=== PATIENT | male | born 1950 | race Hispanic/Latino ===

== ENCOUNTER 2018-09-22 19:52 | Emergency (ER) | payer OTHER ==
[2018-09-22 20:41] LABS: APPEARANCE,URINE Clear (CLEAR); BILIRUBIN,URINE Negative (NEGATIVE); COLOR,URINE Yellow (YELLOW); GLUCOSE, URINE (UA) Negative (NEGATIVE); KETONES,URINE Negative (NEGATIVE); LEUKOCYTE ESTERASE ,URINE Negative (NEGATIVE); NITRATE,URINE Negative (NEGATIVE); OCCULT BLOOD,URINE Trace (NEGATIVE); PROTEIN,URINE 300 (NEGATIVE); UROBILINOGEN,URINE 0.2 mg/dL (0.2-1.0)
[2018-09-22 20:49] LABS: BACTERIA,URINE Rare /HPF (None Seen)
[2018-09-22 20:50] LABS: SPERM,URINE Few /HPF (None Seen); SQUAMOUS EPITHELIAL CELL,UR Few /HPF (0-2)
[2018-09-22 20:52] LABS: BASOPHILS % (AUTO) 0.6 % (0.0-5.0); EOSINOPHILS % (AUTO) 2.5 % (0.0-8.0); HEMATOCRIT 39.8 % (42-54); LYMPHOCYTES % (AUTO) 20.9 % (21.0-51.0); MEAN CORPUSCULAR HEMOGLOBIN 30.6 pg (27.0-33.0); MEAN CORPUSCULAR HGB CONC 33.1 g/dL (32.0-36.0); MEAN CORPUSCULAR VOLUME 92.4 fL (79-99); MONOCYTES % (AUTO) 8.8 % (3.0-13.0); NEUTROPHILS % (AUTO) 67.2 % (40.0-77.0); NUCLEATED RED BLOOD CELLS 0.1 % (0.0-0.19); PLATELET COUNT (AUTO) 384 K/uL (130-400); RED BLOOD CELL COUNT(AUTO) 4.31 MIL/uL (4.50-6.20); RED CELL DISTRIBUTION WIDTH 13.8 % (11.0-15.5); WHITE BLOOD COUNT (AUTO) 8.1 K/uL (4.8-10.8)
[2018-09-22] MEDS ORDERED: CLONIDINE HCL 0.1 MG TABLET ONE (21:00)
[2018-09-22 21:09] LABS: CREATININE 1.5 mg/dL (0.5-1.5); POTASSIUM 4.2 mmol/L (3.5-5.1)
[2018-09-22 21:13] LABS: BILIRUBIN,TOTAL 0.2 mg/dL (0.2-1.0)
== END 2018-09-22 22:11 | disposition home or self-care (01) ==
LOC: EDH 19:52
DX: I10 Essential (primary) hypertension (principal); E11.9 Type 2 diabetes mellitus without complications; E78.5 Hyperlipidemia, unspecified; F32.9 Major depressive disorder, single episode, unspecified; F41.9 Anxiety disorder, unspecified; Z88.0 Allergy status to penicillin; Z98.890 Other specified postprocedural states; Z87.891 Personal history of nicotine dependence
CPT/HCPCS: 36415; 80053; 81001; 84484; 85025; 93005

== ENCOUNTER → 2019-02-19 | Outpatient (CLI) | payer OTHER | END | disposition home or self-care (01) | LOC: SHCH 15:01 | PROVIDERS: ATTEND Internal Medicine Cardiovascular Disease | DX: I35.8 Other nonrheumatic aortic valve disorders (principal); G45.9 Transient cerebral ischemic attack, unspecified; I71.4 Abdominal aortic aneurysm, without rupture | CPT/HCPCS: 93306 ==

== ENCOUNTER → 2019-02-23 | Outpatient (CLI) | payer OTHER | END | disposition home or self-care (01) | LOC: SHCH 07:41 | PROVIDERS: ATTEND Internal Medicine Cardiovascular Disease | DX: I71.4 Abdominal aortic aneurysm, without rupture (principal) | CPT/HCPCS: 93978 ==

== ENCOUNTER → 2019-03-12 | Outpatient (CLI) | payer OTHER ==
[~2019-03-12] VITALS: Ht 172.7 cm; Wt 88.9 kg
[~2019-03-12] MED LIST: REGADENOSON 0.4 MG/5 ML PF SYG IVP SCH
== END | disposition home or self-care (01) ==
LOC: SHCH 08:29
PROVIDERS: ATTEND Internal Medicine Cardiovascular Disease
DX: G45.9 Transient cerebral ischemic attack, unspecified (principal); I10 Essential (primary) hypertension; I71.4 Abdominal aortic aneurysm, without rupture
CPT/HCPCS: 78452; 93017; 96374; A9500 ×2; J2785

== ENCOUNTER 2020-09-11 11:14 | Emergency (ER) | payer OTHER, MEDICARE ==
[~2020-09-11 11:14] MED LIST changes: +AMLO5TAB4 PO; +ATOR10 PO; +BENA10TA88 PO; +GABA-531 PO; +LORA10TA7 PO; +METF-444 PO; +MINO2.5 PO; -REGADENOSON 0.4 MG/5 ML PF SYG IVP SCH; +TAMS-1 PO; +VENL75CA55 PO
== END 2020-09-11 12:53 | disposition home or self-care (01) ==
LOC: EDH 11:14
DX: U07.1 COVID-19 (principal); F41.9 Anxiety disorder, unspecified; F32.9 Major depressive disorder, single episode, unspecified; E11.9 Type 2 diabetes mellitus without complications; E78.5 Hyperlipidemia, unspecified; I10 Essential (primary) hypertension; Z87.891 Personal history of nicotine dependence; Z88.0 Allergy status to penicillin
CPT/HCPCS: 71045

== ENCOUNTER 2020-09-27 12:23 | Emergency (ER) | payer OTHER, MEDICARE ==
[2020-09-27 12:59] LABS: CREATININE 2.5 mg/dL (0.5-1.5); POTASSIUM 5.9 mmol/L (3.5-5.1)
[2020-09-27] MEDS ORDERED: SODIUM ZIRCONIUM CYCLOSILICATE 5 GM POWD.PACK PO NR ×2 (14:15→17:15)
[2020-09-27] MEDS ORDERED: SODIUM POLYSTYRENE SULFONATE 15 GM/60 ML ML ONE (20:32)
== END 2020-09-28 01:44 | disposition home or self-care (01) ==
LOC: EDH 12:23
DX: E87.5 Hyperkalemia (principal); I10 Essential (primary) hypertension; E78.5 Hyperlipidemia, unspecified; F41.9 Anxiety disorder, unspecified; F32.9 Major depressive disorder, single episode, unspecified; Z88.0 Allergy status to penicillin; Z98.890 Other specified postprocedural states
CPT/HCPCS: 36415; 80048; 84132; 93005

== ENCOUNTER 2020-10-18 16:40 | Emergency (ER) | payer OTHER, MEDICARE ==
[2020-10-18 17:06] LABS: BASOPHILS % (AUTO) 0.6 % (0.0-5.0); HEMATOCRIT 34.4 % (42-54); LYMPHOCYTES % (AUTO) 18.1 % (21.0-51.0); MEAN CORPUSCULAR HEMOGLOBIN 29.2 pg (27.0-33.0); MEAN CORPUSCULAR HGB CONC 31.4 g/dL (32.0-36.0); MONOCYTES % (AUTO) 8.8 % (3.0-13.0); NEUTROPHILS % (AUTO) 70.1 % (40.0-77.0); PLATELET COUNT (AUTO) 226 K/uL (130-400); RED CELL DISTRIBUTION WIDTH 14.5 % (11.0-15.5); WHITE BLOOD COUNT (AUTO) 8.5 K/uL (4.8-10.8)
[2020-10-18 17:19] LABS: CREATININE 2.2 mg/dL (0.5-1.5); POTASSIUM 4.4 mmol/L (3.5-5.1)
[2020-10-18 17:20] LABS: INR 1.07 (0.85-1.15); PROTHROMBIN TIME 11.4 SEC (9.6-11.6)
[2020-10-18 17:21] LABS: PARTIAL THROMBOPLASTIN TIME 25.4 SEC (26.3-35.5)
[2020-10-18 17:23] LABS: ALBUMIN 3.3 g/dL (3.5-5.0); BILIRUBIN,TOTAL 0.4 mg/dL (0.2-1.0); MAGNESIUM 1.5 mg/dL (1.80-2.40); TOTAL PROTEIN, SERUM 7.7 g/dL (6.0-8.3)
[2020-10-18 17:25] LABS: B-TYPE NATRIURETIC PEPTIDE 196 pg/mL (0-100)
[2020-10-18] MEDS ORDERED: HYDRALAZINE HCL 25 MG TABLET ONE (17:51)
== END 2020-10-18 20:55 | disposition home or self-care (01) ==
LOC: EDH 16:40
DX: F43.0 Acute stress reaction (principal); I10 Essential (primary) hypertension; F41.9 Anxiety disorder, unspecified; F32.9 Major depressive disorder, single episode, unspecified; E11.9 Type 2 diabetes mellitus without complications; E78.5 Hyperlipidemia, unspecified; Z88.0 Allergy status to penicillin
CPT/HCPCS: 36415; 71045; 80053; 83735; 83880; 84484; 85025; 85610; 85730; 93005

== ENCOUNTER → 2020-11-28 | Outpatient (CLI) | payer OTHER | END | disposition home or self-care (01) | LOC: SHCH 08:57 | PROVIDERS: ATTEND Internal Medicine Cardiovascular Disease | DX: E78.5 Hyperlipidemia, unspecified (principal); R94.31 Abnormal electrocardiogram [ECG] [EKG] | CPT/HCPCS: 93306; 93356 ==

== ENCOUNTER → 2020-12-02 | Outpatient (CLI) | payer OTHER ==
[~2020-12-02] VITALS: Ht 172.7 cm; Wt 88.5 kg
[~2020-12-02] MED LIST changes: +REGADENOSON 0.4 MG/5 ML PF SYG IVP SCH
== END | disposition home or self-care (01) ==
LOC: SHCH 08:02
PROVIDERS: ATTEND Internal Medicine Cardiovascular Disease
DX: E78.5 Hyperlipidemia, unspecified (principal); I25.10 Atherosclerotic heart disease of native coronary artery without angina pectoris
CPT/HCPCS: 78452; 93017; 96374; A9500 ×2; J2785

== ENCOUNTER 2020-12-07 20:02 | Emergency (ER) | payer OTHER ==
[~2020-12-07 20:02] MED LIST changes: -REGADENOSON 0.4 MG/5 ML PF SYG IVP SCH
[2020-12-07 20:34] LABS: BASOPHILS % (AUTO) 0.5 % (0.0-5.0); EOSINOPHILS % (AUTO) 6.1 % (0.0-8.0); HEMATOCRIT 34.6 % (42-54); LYMPHOCYTES % (AUTO) 21.4 % (21.0-51.0); MEAN CORPUSCULAR HEMOGLOBIN 28.9 pg (27.0-33.0); MEAN CORPUSCULAR HGB CONC 31.8 g/dL (32.0-36.0); MEAN CORPUSCULAR VOLUME 91.1 fL (79-99); MONOCYTES % (AUTO) 8.5 % (3.0-13.0); PLATELET COUNT (AUTO) 228 K/uL (130-400); RED CELL DISTRIBUTION WIDTH 14.1 % (11.0-15.5); WHITE BLOOD COUNT (AUTO) 7.7 K/uL (4.8-10.8)
[2020-12-07 20:44] LABS: CREATININE 2.7 mg/dL (0.5-1.5); POTASSIUM 4.4 mmol/L (3.5-5.1)
[2020-12-07 20:47] LABS: APPEARANCE,URINE Clear (CLEAR); BILIRUBIN,URINE Negative (NEGATIVE); COLOR,URINE Yellow (YELLOW); GLUCOSE, URINE (UA) Negative (NEGATIVE); KETONES,URINE Negative (NEGATIVE); LEUKOCYTE ESTERASE ,URINE Negative (NEGATIVE); NITRATE,URINE Negative (NEGATIVE); OCCULT BLOOD,URINE Small (NEGATIVE); PH,URINE 6.5 (5.0-8.0); PROTEIN,URINE >=1000 mg/dL (NEGATIVE); UROBILINOGEN,URINE 0.2 mg/dL (0.2-1.0)
[2020-12-07 20:58] LABS: ALBUMIN 3.1 g/dL (3.5-5.0); BILIRUBIN,TOTAL 0.4 mg/dL (0.2-1.0); TOTAL PROTEIN, SERUM 7.4 g/dL (6.0-8.3)
[2020-12-07 20:59] LABS: BACTERIA,URINE Rare /HPF (None Seen); MUCUS,URINE Few LPF (None Seen); SQUAMOUS EPITHELIAL CELL,UR Few /HPF (0-2)
[2020-12-07 21:06] LABS: INR 1.05 (0.85-1.15); PROTHROMBIN TIME 11.4 SEC (9.6-11.6)
[2020-12-07 21:07] LABS: PARTIAL THROMBOPLASTIN TIME 25.1 SEC (26.3-35.5)
[2020-12-07] MEDS ORDERED: HYDRALAZINE HCL 20 MG/ML VIAL ONE (21:26)
[2020-12-07] MEDS ORDERED: SODIUM CHLORIDE 0.9% 1000ML 1,000 ML IV ONE (21:31)
== END 2020-12-07 22:51 | disposition home or self-care (01) ==
LOC: EDH 20:02
DX: I12.9 Hypertensive chronic kidney disease with stage 1 through stage 4 chronic kidney disease, or unspecified chronic kidney disease (principal); E11.22 Type 2 diabetes mellitus with diabetic chronic kidney disease; N18.9 Chronic kidney disease, unspecified; J90 Pleural effusion, not elsewhere classified; Z88.0 Allergy status to penicillin; E78.5 Hyperlipidemia, unspecified; Z98.890 Other specified postprocedural states
CPT/HCPCS: 36415; 71045; 80053; 81001; 82550; 84484; 85025; 85610; 85730; 93005; 96361; 96374; 99285; J0360; J7030

== ENCOUNTER → 2023-07-25 | Outpatient (CLI) | payer OTHER ==
[~2023-07-25] MED LIST changes: +GADOTERATE MEGLUMINE 10 MMOL/20 ML VIAL IV ONE; +GADOTERATE MEGLUMINE 5 MMOL/10 ML VIAL IV ONE
== END | disposition home or self-care (01) ==
LOC: RAH 08:19
PROVIDERS: ATTEND Internal Medicine Gastroenterology
DX: N28.1 Cyst of kidney, acquired (principal); N26.1 Atrophy of kidney (terminal); R10.84 Generalized abdominal pain
CPT/HCPCS: 74181; A9575; S8037

== ENCOUNTER 2024-10-20 09:06 | Emergency (ER) | payer OTHER, MEDICARE ==
[~2024-10-20] VITALS: Ht 172.7 cm; Wt 88.9 kg
[~2024-10-20 09:06] MED LIST changes: -GADOTERATE MEGLUMINE 10 MMOL/20 ML VIAL IV ONE; -GADOTERATE MEGLUMINE 5 MMOL/10 ML VIAL IV ONE
--- NOTE | 2024-10-20 09:36 | ERN ---
ED Note History of Present Illness Stated Complaint: ABD PAIN AND CONSTIPATION X 3 DAYS Chief Complaint: Abdominal Pain Time Seen by MD: 09:13 Dictation: This is a 74-year-old male. He comes to the ED. He has of last few days he has not been able he said he has been having lots and lots of fighting passing gas. No chest pain or shortness of breath isn't on dialysis no fevers but they said they are subjective sweats there two days ago. No cough congestion runny nose Allergies: Coded Allergies: penicillin G (Unverified Allergy, Unknown, 03/05/19) Home Meds Active Scripts Minoxidil (Loniten) 2.5 Mg Tab, 7.5 MG PO BID for 30 Days, #60 TAB 0 Refills Prov:RUPESH ATKINS 11/22/19 Benazepril HCl (Lotensin) 10 Mg Tablet, 40 MG PO DAILY for 30 Days, #30 TAB 0 Refills Prov:RUPESH ATKINS 11/22/19 Amlodipine Besylate (Norvasc 5Mg Tab) 5 Mg Tablet, 5 MG PO BID for 30 Days, #60 TAB 0 Refills Prov:RUPESH ATKINS [facility] 11/22/19 Reported Medications Loratadine (Loratadine) 10 Mg Tablet, 10 MG PO HS, TAB 11/19/19 Gabapentin (Gabapentin) 300 Mg Capsule, 300 MG PO HS, CAP 11/19/19 Tamsulosin HCl (Flomax) 0.4 Mg Cap.er.24h, 0.4 MG PO HS, CAPSULE. 11/19/19 Venlafaxine HCl (Effexor Xr) 75 Mg Cap.er.24h, 75 MG PO HS, CAPSULE. 11/19/19 Atorvastatin Calcium (LIPITOR) 20 Mg Tab, 20 MG PO HS, TAB 11/19/19 Metformin HCl (Metformin HCl) 500 Mg Tablet, 500 MG PO BID, TAB 11/19/19 Past Medical History Past Medical History: Angina, CAD, Diabetes-Type II, High Cholesterol, Hypertension, Renal Disese Surgical History: CABG, Other Surgical History Other: HERNIA Review of System Dictation Constitutional: Negative for fever,chills, and weight loss Eyes: Negative for injury, pain,redness, and discharge ENT: Negative for injury,pain or swelling Cardiovascular: Negative for chest pain, palpitations, and edema Respiratory: Negative for shortness of breath, cough, and wheezing, Abdomen/GI: Abdominal pain constipation Back: Negative for injury and pain : Negative for injury, bleeding and discharge MS/Extremity: Negative for injury and deformity Skin: Negative for rash, and discoloration Neuro: Negative for headache, weakness, numbness, tingling, and seizure Psych: Negative for suicide ideation, homicidal ideation, and hallucinations Initial Vital Sign VS Vital Signs Date Time Temp Pulse Resp B/P (MAP) Pulse Ox O2 Delivery O2 Flow Rate FiO2 10/20/24 09:07 97.9 68 20 133/62 99 Room Air 0 10/20/24 10:01 21 Physical Exam Dictation General: awake, alert, NAD Head/Face: Normocephalic, atraumatic Eyes: PERRL, EOMI, vision at baseline ENT: oral cavity clear, TMs clear, no signs of infection Neck: Trachea midline, supple, no nuchal rigidity Cardiovascular: RRR, normal S1/S2, No MRGs, no JVD Respiratory: CTAB, no respiratory distress, No rales or wheezes Abdomen: Soft, non-tender, non-distended, normal bowel sounds, no guarding or rebound. Skin: Warm, dry, normal turgor, no rash MS/Extremity: Pulses equal, no cyanosis, neurovascular intact, FROM Neuro: COAx4, GCS 15, strength 5/5, CN 2-12 intact, normal cerebellar exam, normal gait, Psych: Normal behavior, mood, and affect normal Results (Laboratory/Radiology) Laboratory/Radiology Laboratory Tests Test 10/20/24 09:42 White Blood Count 8.3 K/uL (4.8-10.8) Red Blood Count 3.51 MIL/uL (4.50-6.20) L Hemoglobin 11.6 g/dL (14.0-18.0) L Hematocrit 36.7 % (42-54) L Mean Corpuscular Volume 104.6 fL (79-99) H Mean Corpuscular Hemoglobin 33.0 pg (27.0-33.0) Mean Corpuscular Hemoglobin Concent 31.6 g/dL (32.0-36.0) L Red Cell Distribution Width 15.1 % (11.0-15.5) Platelet Count 255 K/uL (130-400) Mean Platelet Volume 8.9 fL (7.5-10.5) Immature Granulocyte % (Auto) 0.7 % (0-1) Neutrophils (%) (Auto) 75.5 % (40.0-77.0) Lymphocytes (%) (Auto) 12.4 % (21.0-51.0) L Monocytes (%) (Auto) 11.0 % (3.0-13.0) Eosinophils (%) (Auto) 0.2 % (0.0-8.0) Basophils (%) (Auto) 0.2 % (0.0-5.0) Neutrophils # (Auto) 6.3 K/uL (1.8-7.7) Lymphocytes # (Auto) 1.0 K/uL (1.0-4.8) Monocytes # (Auto) 0.9 K/uL (0.1-1.0) Eosinophils # (Auto) 0.02 K/uL (0.00-0.70) Basophils # (Auto) 0.02 K/uL (0.00-0.20) Absolute Immature Granulocyte (auto 0.06 K/uL (0-1) Nucleated Red Blood Cells 0.0 % (0.0-0.19) Sodium Level 139 mmol/L (136-145) Potassium Level 5.0 mmol/L (3.5-5.1) Chloride Level 101 mmol/L (101-111) Carbon Dioxide Level 31 mmol/L (21-32) Blood Urea Nitrogen 29 mg/dL (7-18) H Creatinine 6.5 mg/dL (0.5-1.3) H Glomerular Filtration Rate Calc 8 mL/min (>90) Random Glucose 155 mg/dL (70-105) H Total Calcium 8.8 mg/dL (8.5-10.1) Total Bilirubin 0.8 mg/dL (0.2-1.0) Aspartate Amino Transf (AST/SGOT) 10 U/L (10-37) Alanine Aminotransferase (ALT/SGPT) 14 U/L (12-78) Alkaline Phosphatase 113 U/L (50-136) Troponin I High Sensitivity 28 ng/L (4-75) Total Protein 7.3 g/dL (6.0-8.3) Albumin 3.7 g/dL (3.5-5.0) ED Course ED Course Orders Procedure Category Date Status Time Cbc With Differential LAB 10/20/24 Complete 09:19 Comprehensive LAB 10/20/24 Complete Metabolic Panel 09:19 Troponin I High LAB 10/20/24 Complete Sensitivity 09:19 12 Lead Ekg Tracing- EKG 10/20/24 Logged Technical 09:19 Chest 1vw RAD 10/20/24 Resulted 09:19 Ct Abdomen/Pelvis CT 10/20/24 Resulted W/Wo Contras 09:19 Morphine 4mg Syg PHA 10/20/24 Complete (Morphine 4mg Syg) 09:30 Ondansetron 4mg Inj PHA 10/20/24 Complete (Zofran 4mg Inj) 09:30 Lactulose 20 Gm/30 Ml PHA 10/20/24 Complete Udcup (Constulose 09:30 Fleet Order CPOE 10/20/24 Transmitted 10:21 Iohexol (Omnipaque) PHA 10/20/24 Complete 11:39 Current Medications Medications (Trade) Dose Ordered Sig/Meaghan Route PRN Reason Start Time Stop Time Status Last Admin Dose Admin Iohexol (Omnipaque) 75 ml STK-MED ONCE IV 10/20/24 11:39 10/20/24 11:39 DC Lactulose (Constulose 20gm/ 30ml Udcup) 20 gm ONCE ONCE PO 10/20/24 09:30 10/20/24 09:35 DC 10/20/24 09:49 Morphine Sulfate (morPHINE 4MG SYG) 4 mg ONCE ONCE IVP 10/20/24 09:30 10/20/24 09:35 DC 10/20/24 10:00 Ondansetron HCl (zoFRAN 4MG INJ) 4 mg ONCE ONCE IVP 10/20/24 09:30 10/20/24 09:35 DC 10/20/24 09:49 Vital Signs Date Time Temp Pulse Resp B/P (MAP) Pulse Ox O2 Delivery O2 Flow Rate FiO2 10/20/24 10:01 97.7 68 16 156/76 100 Room Air* 0 21 10/20/24 09:07 97.9 68 20 133/62 99 Room Air 0 Medical Decision Making MDM MDM: Differential diagnosis: Considered SBO. But patient has been passing gas daily. He has a feels better. I will go ahead go home. With I told him MiraLax twice a day. Colace twice a day and also enemas every day Rationale: Tests considered and ordered secondary to shared decision making include: Previous outside records reviewed: Old ER visits. Risk of complication and/or morbidity or mortality of patient management: None Medications-Per medication reconciliation Need for hospitalization: Patient does not meet criteria for hospitalization. Need for emergency major/minor surgery: No There are no social concerns with this patient. Prescription drug management Prescriptions will include symptomatic care Patient's prior external medical records from other ER visits were reviewed by me as indicated. Prior testing and results from previous visits were reviewed. Prior tests were taken into account with medical decision making and resource utilization, independent historian/historians were used to obtain complete medical history. I independently interpreted the test that were performed, results were reviewed by me and considered findings on radiology if ordered. Medical management and examination interpretation discussions were had by me with other qualified healthcare professionals as indicated for the patient's care. DX & DISP Disposition: Discharge Departure Condition: Stable Referrals: HARJEET DESOUZA MD (PCP) CHASE ESPINO MD Oct 20, 2024 09:36
[2024-10-20] MEDS: LACTULOSE 20 GM/30 ML UDCUP PO ONE (09:49)
[2024-10-20] MEDS: ondanSETRON 4MG INJ IVP ONE (09:49)
[2024-10-20] MEDS: morPHINE 4 MG SYG IVP ONE (10:00)
[2024-10-20 10:09] LABS: BASOPHILS # (AUTO) 0.02 K/uL (0.00-0.20); BASOPHILS % (AUTO) 0.2 % (0.0-5.0); EOSINOPHILS # (AUTO) 0.02 K/uL (0.00-0.70); EOSINOPHILS % (AUTO) 0.2 % (0.0-8.0); HEMATOCRIT 36.7 % (42-54); IMMATURE GRANULOCYTE ABSOLUTE 0.06 K/uL (0-1); LYMPHOCYTES % (AUTO) 12.4 % (21.0-51.0); MEAN CORPUSCULAR HGB CONC 31.6 g/dL (32.0-36.0); MEAN CORPUSCULAR VOLUME 104.6 fL (79-99); MONOCYTES # (AUTO) 0.9 K/uL (0.1-1.0); NEUTROPHILS # (AUTO) 6.3 K/uL (1.8-7.7); NEUTROPHILS % (AUTO) 75.5 % (40.0-77.0); PLATELET COUNT (AUTO) 255 K/uL (130-400); RED BLOOD CELL COUNT(AUTO) 3.51 MIL/uL (4.50-6.20); RED CELL DISTRIBUTION WIDTH 15.1 % (11.0-15.5); WHITE BLOOD COUNT (AUTO) 8.3 K/uL (4.8-10.8)
--- NOTE | 2024-10-20 10:19 | HMCIMG ---
CHEST 1VW REASON: chest congestion COMPARISON: 12/07/2020 FINDINGS: There is mild atelectasis in the left lung base, scarring could cause this appearance as well. Lungs are otherwise clear. Heart size is normal. There is no vascular congestion. There is been a previous median sternotomy. IMPRESSION: 1. Atelectasis or scarring left lung base, otherwise negative exam.
[2024-10-20 10:22] LABS: CREATININE 6.5 mg/dL (0.5-1.3)
[2024-10-20 10:32] LABS: ALBUMIN 3.7 g/dL (3.5-5.0); BILIRUBIN,TOTAL 0.8 mg/dL (0.2-1.0); TOTAL PROTEIN, SERUM 7.3 g/dL (6.0-8.3)
[2024-10-20] MEDS ORDERED: IOHEXOL-350 75 ML VIAL IV ONE (11:39)
--- NOTE | 2024-10-20 12:08 | HMCIMG ---
CT ABDOMEN/PELVIS W/WO CONTRAS REASON: abdominal pain, constipation Comparison: 04/21/2018 TECHNIQUE: Images are obtained from lung bases through the symphysis pubis following IV contrast, 75 cc Omnipaque 350. FINDINGS: Lung bases are clear. There are no focal liver lesions. There is moderate to marked bilateral renal cortical thinning consistent with a history of renal failure. 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 Spleen and pancreas appear unremarkable. The gallbladder appears normal as well. Bowel loops appear unremarkable. This includes normal appearance of the appendix There is no evidence of free fluid or intraperitoneal air. There are no focal fluid collections. Aorta and retroperitoneum appear normal as do pelvic soft tissue structures. The anterior abdominal wall is intact. Osseous structures appear unremarkable. IMPRESSION: 1. Renal cortical thinning consistent with chronic renal disease. 2. Stable left renal artery aneurysm. 3. No acute finding in the abdomen or pelvis. CT was performed with one or more following dose reduction techniques: automated exposure control, adjustment of the mA and kv according to patient's size, or use of a iterative reconstruction technique.
[2024-10-20 13:04] VITALS: BP 120/81; PULSE 75; RESP 16; TEMP 98.3; O2SAT 99
--- NOTE | 2024-10-20 20:58 | EKG ---
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
== END 2024-10-20 13:10 | disposition home or self-care (01) ==
LOC: EDH 09:06
DX: K59.00 Constipation, unspecified (principal); E11.9 Type 2 diabetes mellitus without complications; E78.00 Pure hypercholesterolemia, unspecified; I11.9 Hypertensive heart disease without heart failure; I25.10 Atherosclerotic heart disease of native coronary artery without angina pectoris; Z79.84 Long term (current) use of oral hypoglycemic drugs; Z79.899 Other long term (current) drug therapy; Z88.0 Allergy status to penicillin; Z95.1 Presence of aortocoronary bypass graft; Z98.890 Other specified postprocedural states
CPT/HCPCS: 99285; 74178; 96374; 71045; 96375; 84484; 80053; 85025; 36415; 93005; J2405; J2270; Q9967

== ENCOUNTER → 2024-10-24 | Outpatient (CLI) | payer OTHER ==
--- NOTE | 2024-10-26 09:03 | HMCSR ---
APPROVED REPORT Laterality: Bilateral Indications g45.9 Doppler Spectral Velocity Analysis PSV / EDVPSV / EDV ECA (R) 124 / cm/sECA (L) 103 / cm/s dICA (R) 70 / 19 cm/sdICA (L) 57 / 13 cm/s [place] (R) 58 / 16 cm/smICA (L) 56 / 18 cm/s pICA (R) 65 / 12 cm/spICA (L) 87 / 16 cm/s dCCA (R) 71 / 9 cm/sdCCA (L) 101 / 11 cm/s mCCA (R) 99 / 11 cm/smCCA (L) 127 / 14 cm/s pCCA (R) 86 / 11 cm/spCCA (L) 103 / 16 cm/s Vert (R) 36 / cm/sVert (L) Subl. (R) 149 / cm/sSubl. (L) 292 / cm/s ICA/CCA 0.71ICA/CCA 0.69 Technologist Impression Minimal to mild plaque noted in the bilateral carotids, without hemodynamic significance. Right vertebral artery appears antegrade. Left vertebral artery appears pre-occluded. AVF noted on left upper extremity. Conclusion As above. Conclusion As above.
== END | disposition home or self-care (01) ==
LOC: SHCH 14:20
PROVIDERS: ATTEND Internal Medicine Cardiovascular Disease
DX: I65.23 Occlusion and stenosis of bilateral carotid arteries (principal); I77.0 Arteriovenous fistula, acquired
CPT/HCPCS: 93880

== ENCOUNTER → 2024-10-29 | Outpatient (CLI) | payer OTHER ==
--- NOTE | 2024-10-29 10:31 | HMCIMG ---
NM GASTRIC EMPTYING STUDY REASON: ABDOMINAL DISTENSION. COMPARISON: None TECHNIQUE: Nuclear gastric emptying study was performed with 50 mCi of technetium sulfa colloid with scrambled eggs through oral route. FINDINGS: T half of gastric emptying is 44 minutes. IMPRESSION: Normal gastric emptying with T half of 44 minutes.
== END | disposition home or self-care (01) ==
LOC: RAH 06:51
PROVIDERS: ATTEND Internal Medicine Gastroenterology
DX: R68.81 Early satiety (principal); R14.0 Abdominal distension (gaseous); R11.0 Nausea
CPT/HCPCS: 78264; A9541

== ENCOUNTER 2024-10-31 16:55 | Emergency (ER) | payer OTHER ==
[~2024-10-31] VITALS: Ht 172.7 cm; Wt 84.4 kg
[2024-10-31 17:44] LABS: BASOPHILS # (AUTO) 0.04 K/uL (0.00-0.20); BASOPHILS % (AUTO) 0.5 % (0.0-5.0); EOSINOPHILS # (AUTO) 0.14 K/uL (0.00-0.70); EOSINOPHILS % (AUTO) 1.6 % (0.0-8.0); HEMATOCRIT 36.6 % (42-54); IMMATURE GRANULOCYTE ABSOLUTE 0.06 K/uL (0-1); LYMPHOCYTES # (AUTO) 1.2 K/uL (1.0-4.8); LYMPHOCYTES % (AUTO) 13.3 % (21.0-51.0); MEAN CORPUSCULAR HEMOGLOBIN 32.3 pg (27.0-33.0); MEAN CORPUSCULAR HGB CONC 30.9 g/dL (32.0-36.0); MEAN CORPUSCULAR VOLUME 104.6 fL (79-99); MONOCYTES # (AUTO) 0.9 K/uL (0.1-1.0); MONOCYTES % (AUTO) 9.8 % (3.0-13.0); NEUTROPHILS # (AUTO) 6.6 K/uL (1.8-7.7); NEUTROPHILS % (AUTO) 74.1 % (40.0-77.0); PLATELET COUNT (AUTO) 225 K/uL (130-400); RED CELL DISTRIBUTION WIDTH 15.4 % (11.0-15.5); WHITE BLOOD COUNT (AUTO) 8.9 K/uL (4.8-10.8)
--- NOTE | 2024-10-31 17:48 | EKG ---
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
[2024-10-31 17:56] LABS: CREATININE 6.5 mg/dL (0.5-1.3); POTASSIUM 4.7 mmol/L (3.5-5.1)
--- NOTE | 2024-10-31 17:58 | HMCIMG ---
INDICATION: cough TECHNIQUE: CHEST 1VW COMPARISON: 10/20/2024 FINDINGS/IMPRESSION: Prominent bilateral interstitial markings which may represent bronchitis or vascular congestion in the proper clinical setting. Borderline cardiomegaly with CABG changes. Mild degenerative changes of the spine. The visualized upper abdomen appears unremarkable.
--- NOTE | 2024-10-31 20:16 | ERN ---
General Chief Complaint: Hypertension Stated Complaint: CHILLS,HIGH BLOOD PRESSURE Time Seen by MD: 17:23 Time Seen by Midlevel: 17:23 Source: patient History of Present Illness Initial Comments Patient is a 74-year-old male with a past medical history of hypertension and end-stage renal disease on hemodialysis presenting to the emergency department with persistent cold sweats. The patient reports having a coronary artery bypass in 2022 and since then has been having night sweats. The night sweats have been progressively worsening. The patient now reports his night sweats occurred during the daytime. He was mentioned this to his primary care doctor but has not been worked up for it. Today he was no complaints but wanted to make sure he does not have an infection. He specifically denies any chest pain, shortness of breath, cough, nausea, vomiting, diarrhea, or any other symptoms at this time. Allergies: Coded Allergies: penicillin G (Unverified Allergy, Unknown, 03/05/19) Home Meds Active Scripts Minoxidil (Loniten) 2.5 Mg Tab, 7.5 MG PO BID for 30 Days, #60 TAB 0 Refills Prov:RUPESH ATKINS [facility] 11/22/19 Benazepril HCl (Lotensin) 10 Mg Tablet, 40 MG PO DAILY for 30 Days, #30 TAB 0 Refills Prov:RUPESH ATKINS [facility] 11/22/19 Amlodipine Besylate (Norvasc 5Mg Tab) 5 Mg Tablet, 5 MG PO BID for 30 Days, #60 TAB 0 Refills Prov:RUPESH ATKINS [facility] 11/22/19 Reported Medications Loratadine (Loratadine) 10 Mg Tablet, 10 MG PO HS, TAB 11/19/19 Gabapentin (Gabapentin) 300 Mg Capsule, 300 MG PO HS, CAP 11/19/19 Tamsulosin HCl (Flomax) 0.4 Mg Cap.er.24h, 0.4 MG PO HS, CAPSULE. 11/19/19 Venlafaxine HCl (Effexor Xr) 75 Mg Cap.er.24h, 75 MG PO HS, CAPSULE. 11/19/19 Atorvastatin Calcium (LIPITOR) 20 Mg Tab, 20 MG PO HS, TAB 11/19/19 Metformin HCl (Metformin HCl) 500 Mg Tablet, 500 MG PO BID, TAB 2/13/20 Past Medical History Past Medical History: Depression, Diabetes-Type II, High Cholesterol, Heart Disease, Hypertension, Renal Disese Medical History Other: PTSD Past Surgical History: CABG, Other Surgical History Other: RT INGUINAL HERNIA REPAIR ROS Dictation CONSTITUTIONAL: Negative except for HPI HEAD/FACE: Negative except for HPI EENT: Negative except for HPI RESPIRATORY: Negative except for HPI GASTROINTESTINAL/ABDOMINAL: Negative except for HPI GENITOURINARY: Negative except for HPI MUSCULOSKELETAL: Negative except for HPI INTEGUMENTARY: Negative except for HPI NEUROLOGICAL/PSYCH: Negative except for HPI HEMATOLOGIC/LYMPHATIC: Negative except for HPI All Systems Negative, Except as noted above. 13 point review of systems assessed and all negative except for above. Physical Exam Physical Exam Dictation Vital Signs reviewed General Appearance: Alert, oriented x 3, no acute distress, well developed, nourished. Head and Face: non-traumatic. Eyes: PERRL, pink conjunctivas, eyelid no trauma, anterior chamber with arcus senilis. Ears: Pinnas intact and no signs of trauma or erythema ear canals clear and no discharge TM no erythema Nose: No discharge, no bleeding. Oropharynx: Mouth normal, tongue pink, pharynx clear,no erythema, tonsils no exudates, no abscesses noted, mucous membrane moist Neck: Supple, non-tender, no thyromegaly, no masses, no JVD, no bruits Breast:Deferred Chest:No tenderness, no crepitus, no paradoxical movement, no retractions Lungs:Clear, well-ventilated, symmetric, no rales, no wheezing, no rhonchi, no stridor, good breath sounds bilaterally Heart: Regular rate, regular rhythm, no murmur, no gallops Vascular: no peripheral edema, Abdomen: Soft, positive bowel sounds, nondistended, no guarding, nontender, no rebound, no masses no hepatomegaly, no splenomegaly, no Stauffer's sign, no hernias. Rectal: Deferred Genital: Deferred Neurological: Normal speech, motor function intact, sensory function intact Musculoskeletal: Neck nontender, full range of motion, back nontender, full range of motion, Extremities: nontender, full range of motion Skin: Color pink, dry, no turgor, no rash, no lacerations, no abrasions, no contusions. Lymphatic: Deferred Results Laboratory and Microbiology Lab and Micro Result Laboratory Tests Test 10/31/24 17:38 White Blood Count 8.9 K/uL (4.8-10.8) Red Blood Count 3.50 MIL/uL (4.50-6.20) L Hemoglobin 11.3 g/dL (14.0-18.0) L Hematocrit 36.6 % (42-54) L Mean Corpuscular Volume 104.6 fL (79-99) H Mean Corpuscular Hemoglobin 32.3 pg (27.0-33.0) Mean Corpuscular Hemoglobin Concent 30.9 g/dL (32.0-36.0) L Red Cell Distribution Width 15.4 % (11.0-15.5) Platelet Count 225 K/uL (130-400) Mean Platelet Volume 8.8 fL (7.5-10.5) Immature Granulocyte % (Auto) 0.7 % (0-1) Neutrophils (%) (Auto) 74.1 % (40.0-77.0) Lymphocytes (%) (Auto) 13.3 % (21.0-51.0) L Monocytes (%) (Auto) 9.8 % (3.0-13.0) Eosinophils (%) (Auto) 1.6 % (0.0-8.0) Basophils (%) (Auto) 0.5 % (0.0-5.0) Neutrophils # (Auto) 6.6 K/uL (1.8-7.7) Lymphocytes # (Auto) 1.2 K/uL (1.0-4.8) Monocytes # (Auto) 0.9 K/uL (0.1-1.0) Eosinophils # (Auto) 0.14 K/uL (0.00-0.70) Basophils # (Auto) 0.04 K/uL (0.00-0.20) Absolute Immature Granulocyte (auto 0.06 K/uL (0-1) Nucleated Red Blood Cells 0.0 % (0.0-0.19) Red Blood Cell Morphology See comments Sodium Level 141 mmol/L (136-145) Potassium Level 4.7 mmol/L (3.5-5.1) Chloride Level 102 mmol/L (101-111) Carbon Dioxide Level 33 mmol/L (21-32) H Blood Urea Nitrogen 37 mg/dL (7-18) H Creatinine 6.5 mg/dL (0.5-1.3) H Glomerular Filtration Rate Calc 8 mL/min (>90) Random Glucose 124 mg/dL (70-105) H Total Calcium 8.0 mg/dL (8.5-10.1) L Troponin I High Sensitivity 50 ng/L (4-75) Labs Reviewed?: Yes MDM MDM: Differential diagnosis: Pneumonia, viral illness, gastroenteritis There are no social concerns with this patient. Prescription drug management Prescriptions will include: None Medical management and examination interpretation discussions were had by me with other qualified healthcare professionals as indicated for the patient's c are. ED Course Orders Procedure Category Date Status Time Cbc With Differential LAB 10/31/24 Complete 17:21 Basic Metabolic Panel LAB 10/31/24 Complete 17:21 Troponin I High LAB 10/31/24 Complete Sensitivity 17:21 12 Lead Ekg Tracing- EKG 10/31/24 Complete Technical 17:21 Influenza Type A & B, LAB 10/31/24 Logged Rapid 17:21 Covid Rna Naat LAB 10/31/24 Logged 17:21 Chest 1vw RAD 10/31/24 Resulted 17:21 Vital Signs Date Time Temp Pulse Resp B/P (MAP) Pulse Ox O2 Delivery O2 Flow Rate FiO2 10/31/24 17:06 98.8 78 18 187/90 97 Room Air 0 DX & DISP Disposition: Discharge Departure Impression: Primary Impression: Unexplained night sweats Condition: Stable Additional Instructions: Your blood work today is stable. There are no signs of infection. Please follow up with your primary care doctor outpatient for further evaluation. Return to the ER for any new or worsening symptoms. Referrals: HARJEET DESOUZA MD (PCP) Time of Disposition: 20:15 I have reviewed the case, and I agree with, Diagnosis and Plan I performed the substantive portion of the visit. I have reviewed and personally made and approve the management plan that is documented in the note by myself or the TRE. I acknowledge for responsibility for the patient's management plan. WILMER CHAMBERLAIN Oct 31, 2024 20:16
--- NOTE | 2024-10-31 20:23 | NUR ---
PER WILMER ROMERO, OK TO DISCHARGE PT, WILL CANCEL FLU AND COVID. SPOKE WITH PT
[2024-10-31 20:28] VITALS: BP 141/80; PULSE 74; RESP 16; TEMP 97.4; O2SAT 98
== END 2024-10-31 21:04 | disposition home or self-care (01) ==
LOC: EDH 16:55
DX: I12.0 Hypertensive chronic kidney disease with stage 5 chronic kidney disease or end stage renal disease (principal); E11.22 Type 2 diabetes mellitus with diabetic chronic kidney disease; N18.6 End stage renal disease; R61 Generalized hyperhidrosis; E78.00 Pure hypercholesterolemia, unspecified; F32.A Depression, unspecified; F43.10 Post-traumatic stress disorder, unspecified; Z79.84 Long term (current) use of oral hypoglycemic drugs; Z79.899 Other long term (current) drug therapy; Z88.0 Allergy status to penicillin; Z95.1 Presence of aortocoronary bypass graft; Z99.2 Dependence on renal dialysis
CPT/HCPCS: 36415; 71045; 80048; 84484; 85025; 93005; 99285

== ENCOUNTER → 2025-04-29 | Outpatient (CLI) | payer OTHER ==
[~2025-04-29] MED LIST changes: -TAMS-1 PO; +TAMS-55 PO
--- NOTE | 2025-04-29 17:42 | HMCSR ---
APPROVED REPORT EXAM: Two-dimensional and M-mode echocardiogram with Doppler and color Doppler. INDICATION ICD: Hypertension 2D Dimensions IVSd1.2 (0.7-1.1cm)LVEF(%)71.3 (>50%)LVED Vol(simp.)101.1 mL LVDd5.1 (3.8-5.6cm)FS(%)41 %LVES Vol(simp.)45.3 mL PWd1.2 (0.7-1.1cm)LA (2D)4.8 (1.6-4.0cm)LVEF(%, simp.)55 % LVDs3.0 (2.5-4.0cm)Ao Root(2D)3.2 (2.0-3.7cm)LA ESV INDEX (BP)32.91 mL/m2 LVOT diam2.0 (1.8-2.4cm) M-Mode Dimensions EPSS0.8 cm LA (MM)5.5 (1.6-4.0cm) Ao Root(MM)2.7 (2.0-3.7cm) Aortic Valve AoV Vmax2.1 m/Nell Peak GR17.0 mmHgLVOT Vmax1.2 m/s AoV VTI0.4 mAo Mean GR9.3 mmHgLVOT VTI0.26 m NAZ (VMAX)1.93 cm2AVA (VTI) 1.9 cm2 Mitral Valve MV E Vmax99.3 cm/sDECEL Ajlw373 ms MV A Vmax99.3 cm/sP 1/2 T74 ms E/A ratio1.0MVA (PHT)3.0 cm2 TDI E/E' Zxtlpc25.0 Medial E' Peak V5.23 cm/s Tricuspid Valve TR Vmax1.9 m/sRVSP13.6 mmHg TR Peak GR14.8 mmHg Left Ventricle The left ventricle is normal size. There is normal LV segmental wall motion. There is normal left jesus tricular wall thickness. LVEF is 50-55%. Indeterminate diastolic dysfunction. Right Ventricle The right ventricle is normal size. The right ventricular systolic function is normal. Atria The left atrium size is normal. The right atrium size is normal. Aortic Valve The aortic valve is normal in structure. Trace aortic regurgitation. There is no aortic valvular sten osis. Mitral Valve The mitral valve is normal in structure. There is no mitral valve regurgitation noted. There is no mi tral valve stenosis. Tricuspid Valve The tricuspid valve is normal in structure. There is trace tricuspid valve regurgitation noted. Pulmonic Valve The pulmonary valve is normal in structure. There is no pulmonic valvular regurgitation. Great Vessels The aortic root is normal in size. The IVC was not visualized. Pericardium There is no pericardial effusion. Conclusion LVEF is 50-55%. The right ventricle is normal size. The aortic root is normal in size. There is no pericardial effusion.
== END | disposition home or self-care (01) ==
LOC: RAH 14:25
PROVIDERS: ATTEND Internal Medicine Cardiovascular Disease
DX: I10 Essential (primary) hypertension (principal)
CPT/HCPCS: 93306